=== PATIENT | female | born 1960 | race Caucasian/White ===

== ENCOUNTER 2017-07-18 09:55 | Emergency (ER) | payer MEDICAID ==
[~2017-07-18] VITALS: Ht 162.6 cm; Wt 55.0 kg
[2017-07-18] MEDS ORDERED: SODIUM CHLORIDE 0.9% 1,000 ML IV ONE (10:30)
[2017-07-18 11:13] LABS: BASOPHILS % 0.6 % (0.0-2.0); EOSINOPHILS % 0.1 % (0.0-5.0); HEMATOCRIT. 41.7 % (36.0-48.0); HEMOGLOBIN. 14.3 g/dL (12.0-16.0); LYMPHOCYTES % 10.4 % (20.0-50.0); MEAN CORPUSCULAR HEMOGLOBIN 27.9 pg (28.0-32.0); MEAN CORPUSCULAR VOLUME 81.5 fL (81.0-99.0); MEAN PLATELET VOLUME 9.3 fl (7.4-10.4); MONOCYTES % 10.3 % (2.0-8.0); NEUTROPHILS % 78.6 % (40.0-76.0); PLATELET 172 x1000/uL (130-400); RED BLOOD CELL COUNT 5.12 mill/uL (4.2-5.4); RED CELL DISTRIBUTION WIDTH 13.9 % (11.6-14.6)
[2017-07-18 11:19] LABS: CHLORIDE 107 mEq/L (98-107)
[2017-07-18 11:21] LABS: INR 1.1; PROTHROMBIN TIME 11.1 sec (9.4-11.6)
[2017-07-18 15:42] VITALS: BP 131/78
== END 2017-07-18 15:44 | disposition home or self-care (01) ==
LOC: ER 10:36
DX: B34.9 Viral infection, unspecified (principal); Z88.0 Allergy status to penicillin
CPT/HCPCS: 36415; 71045; 80053; 83735; 83880; 84484; 85025; 85610; 93005; 96360; 96361; 99285; J7030; Z7610

== ENCOUNTER 2023-08-29 15:24 | Emergency (ER) | payer MEDICARE, MEDICAID ==
[~2023-08-29] VITALS: Ht 157.5 cm; Wt 68.0 kg
[2023-08-29 15:43] VITALS: O2SAT 97
[2023-08-29] MEDS ORDERED: NAP5EC MT (16:59)
[2023-08-29] MEDS ORDERED: CYCL5TAB MT (16:59)
[2023-08-29] MEDS: KETOROLAC 15MG/ML VIAL IM ONE (17:36)
[2023-08-29 17:42] VITALS: BP 148/88; PULSE 95; RESP 18; TEMP 98.2
== END 2023-08-29 18:03 | disposition home or self-care (01) ==
LOC: ER 15:24
DX: M54.50 Low back pain, unspecified (principal)
CPT/HCPCS: 99283; 72100; 96372; J1885